=== PATIENT | male | born 1985 | race Two or more races ===

== ENCOUNTER 2025-07-07 23:46 | Emergency (ER) | payer OTHER ==
[~2025-07-07] VITALS: Ht 180.3 cm; Wt 102.1 kg
[2025-07-08] MEDS ORDERED: KETOROLAC TROMETHAMINE 30 MG VIAL IV STA (00:21)
[2025-07-08] MEDS ORDERED: 0.9 % SODIUM CHLORIDE 1,000 ML IV STA (00:23)
[2025-07-08] MEDS ORDERED: PROPOFOL 10,000 MCG/ML VIAL IV STA (00:25)
[2025-07-08] MEDS ORDERED: ORPHENADRINE CITRATE 30 MG/ML AMPUL IV STA (00:28)
[2025-07-08] MEDS ORDERED: DEXAMETHASONE SODIUM PHOSPHATE 4 MG/ML VIAL IV STA (00:28)
[2025-07-08] MEDS ORDERED: MORPHINE SULFATE 4 MG/ML VIAL IV STA (00:52)
[2025-07-08] MEDS ORDERED: NALOXONE HCL 0.4 MG/ML AMPUL IV STA (00:56)
== END 2025-07-08 03:34 | disposition home or self-care (01) ==
LOC: ER 23:46
DX: S43.085A Other dislocation of left shoulder joint, initial encounter (principal); Y33.XXXA Other specified events, undetermined intent, initial encounter; Y93.89 Activity, other specified; Y92.511 Restaurant or cafe as the place of occurrence of the external cause; Y99.8 Other external cause status